=== PATIENT | male | born 1970 | race Caucasian/White ===

== ENCOUNTER 2019-03-06 15:13 | Outpatient (REF) | payer BC, SELFPAY ==
[2019-03-06 19:46] LABS: Calculated LDL 148 mg/dL; Cholesterol 251 mg/dL (<200); Glucose 89 mg/dL (74-106); HDL Cholesterol 37 mg/dL (40-60); Triglyceride 331 mg/dL (<150)
[2019-03-09 11:34] LABS: Hepatitis C Ab w Rflx HCV PCR Negative (Negative)
== END 2019-03-06 15:33 ==
LOC: NCHCN 15:13
PROVIDERS: PCP Family Medicine; Visit Provider Family Medicine
DX: Z00.00 Encounter for general adult medical examination without abnormal findings (principal); Z13.1 Encounter for screening for diabetes mellitus; Z11.59 Encounter for screening for other viral diseases; Z13.220 Encounter for screening for lipoid disorders
CPT/HCPCS: 80061; 82947; 86803

== ENCOUNTER 2019-10-23 06:17 | Day surgery (SDC) | payer BC, SELFPAY ==
[2019-10-23 06:28] VITALS: BP 127/84; PULSE 70; RESP 16; TEMP 36.6; O2SAT 96
[2019-10-23] MEDS: Lactated Ringers 1,000 ML 80 ML IV (06:53)
--- NOTE | 2019-10-23 07:18 | PDOC.DSDIS_ITS ---
Discharge Plan Disposition Patient Disposition: HOME Condition: Good Discharge Details Reason For Visit: Colonoscopy Attending Provider: July Christine Primary Care Provider: Ian Segal Home Meds and New Rx's Prescriptions: Continued aspirin 325 mg tablet 325 mg PO ONCE PRNRF: 0 acetaminophen [Mapap Extra Strength] 500 MG tablet 1 tab PO PRN PRNRF: 0 Discontinued bisacodyl [Dulcolax (bisacodyl)] 5 mg tablet,delayed release (DR/EC) 5 mg PO ONCE Qty: 4 RF: 0 polyethylene glycol 3350 17 gram powder in packet 255 g PO DAILY Qty: 15 RF: 0 Discharge Instructions Additional Instructions: Findings: Three small polyps were removed. My office will contact you with bio psy results. Follow up: If the biopsy shows adenomatous polyps, you will need a colonoscopy in 5 years. Please call if you develop: fevers >101.5 Nausea or Vomiting Abdominal pain that is not transient DAY SURGERY UNIT POST COLONOSCOPY INSTRUCTIONS 1. Because there will be medication in your system for the next 24 hours, you may feel a little sleepy. Your coordination will be affected. Therefore: a. Do not drive or operate dangerous equipment for 24 hours. b. Do not drink alcohol beverages for 24 hours (not even beer). c. Plan to go home and rest for the day. 2. Generally there are no restrictions on your activity after a day or so has gone by, but you may feel a bit fatigued for a few days. 3 After you arrive home you may have a light meal and return to a normal diet as you can tolerate it without feeling sick to your stomach. 4. After surgery, you may feel pain or discomfort. This should be only transient, but if it persists please contact your doctor. 5. If there are any questions regarding the findings of your procedure, please feel free to contact your doctor. 6. If you are unable to contact your doctor with a problem, contact the hospital at [phone]. 7. Continue all your regular medications unless directed otherwise. I understand the above instructions and have no questions. Signature of Patient or Responsible Adult Escort Date/Time Name of Responsible Adult Escort Signature of Nurse Date/Time Activity:: Activity as Tolerated Diet:: As Tolerated Discharge Orders Discharge Orders: Discharge Order (Routine); Ordered 10/23/19 Ordered By: July Christine DS: Diagnosis Discharge Diagnosis (1) Colon polyps: Status: Acute (2) Diverticulosis: Status: Acute
--- NOTE | 2019-10-23 07:19 | W.COLOREPORT ---
Date of service: 10/23/19 Time of Service: 08:06 Colonoscopy Report Date of procedure: 10/23/19 Pre-op diagnosis general: Screening Post-op diagnosis procedure note: other (Colon polyps, mild diverticulosis) Procedure: Colonoscopy with cold forceps polypectomy Surgeon: July Christine Anesthesia proc note operative: MAC Disposition: same day Indications: This 49 year old man presents for his first screening colonoscopy. He has no symptoms. FH of colon cancer in a maternal grandparent. Procedure Description: The patient was placed in the left Donovan position. Propofol was titrated to sedation. Digital rectal examination revealed no abnormalities. The scope was advanced to the cecum without difficulty. The ileocecal valve and appendiceal orifice were clearly identified. The prep was good. The scope was slowly withdrawn over the course of greater than 6 minutes with no abnormalities seen in the ascending, transverse, descending colon. A diminuitive polyp was removed with the cold forceps from the sigmoid colon. Two diminuitive polyps were removed from the rectum with the cold forceps. The patient tolerated the procedure well and was stable to recovery. If the polyps are adenomatous, he will need follow up colonoscopy in 5 years.
--- NOTE | 2019-10-23 07:46 | BOWEL_PTH ---
PATIENT: Garry Wynne LOC: [facility] U#:[id number] AGE/SX: 49/M ROOM: RE10/23/[address]: July Christine MD : [id number] BED: DIS: 10/23/2019 SPEC #: [id number] RECD: 10/23/19 12:43 STATUS: TEMITOPE REQ #: [id number] MARYCHUY: 10/23/19 07:[address]: July Christine DEPT: Surgical Specimen RECD BY: Mamie Arias ENTERED: 10/23/19 12:44 SP TYPE: Bowel OTHR DR: Ian Segal Tissues: 1 - BIOPSY BOWEL 2 - BIOPSY BOWEL Procedures: GROSS AND MICRO LEVEL 4 Comments: [id number]
[2019-10-23 08:31] VITALS: BP 114/81; PULSE 67; RESP 18; TEMP 36.4; O2SAT 97
== END 2019-10-23 09:00 | disposition home or self-care (01) ==
PROVIDERS: PCP Family Medicine; Visit Provider Surgery
PROC: 0DJD8ZZ Inspection of Lower Intestinal Tract, Via Natural or Artificial Opening Endoscopic (ICD-10-PCS; CPT 45378; principal; 2019-10-23 07:30)
DX: Z12.11 Encounter for screening for malignant neoplasm of colon (principal); K63.5 Polyp of colon; K62.1 Rectal polyp; Z80.0 Family history of malignant neoplasm of digestive organs
CPT/HCPCS: 45380; 88305; J2001

== ENCOUNTER 2023-03-04 15:53 | Outpatient (REF) | payer BC, SELFPAY ==
[2023-03-04 19:02] LABS: Hemoglobin A1C 5.7 % (<5.7)
[2023-03-04 19:04] LABS: Calculated LDL 135 mg/dL (<100); Cholesterol 230 mg/dL (<200); HDL Cholesterol 47 mg/dL (40-60); Triglyceride 241 mg/dL (<150)
[2023-03-05 18:18] LABS: HBs Antibody, Quant 14.9 mIU/mL (See Note); Hepatitis B Surface Ab Positive (See Note)
[2023-03-05 18:26] LABS: Hepatitis B Surface Ag Negative (Negative)
[2023-03-05 18:58] LABS: HIV-1/2 Ag & Ab Screen Negative (Negative)
[2023-03-05 19:02] LABS: Hepatitis C Ab w Rflx HCV PCR Negative (Negative)
== END 2023-03-04 15:54 | disposition home or self-care (01) ==
LOC: NCHCN 15:53
PROVIDERS: PCP Family Medicine; Visit Provider Family Medicine
DX: Z00.00 Encounter for general adult medical examination without abnormal findings (principal); Z13.6 Encounter for screening for cardiovascular disorders; Z11.4 Encounter for screening for human immunodeficiency virus [HIV]; Z11.59 Encounter for screening for other viral diseases; Z12.5 Encounter for screening for malignant neoplasm of prostate; Z13.1 Encounter for screening for diabetes mellitus; Z01.84 Encounter for antibody response examination
CPT/HCPCS: 80061; 86706; 86803; 87340; 87389; 83036

== ENCOUNTER 2023-12-03 19:49 | Emergency (ER) | payer BC, SELFPAY ==
[2023-12-03 20:02] VITALS: BP 151/96; PULSE 96; RESP 16; TEMP 37; O2SAT 95
--- NOTE | 2023-12-03 20:45 | ED.GENADUL_ITS ---
Discharge Plan Disposition Patient Disposition: Home Condition: Stable Discharge Details Clinical Impression: Abrasion of cornea, left Primary Care Provider: Ian Segal ED Provider: Josefina Rajan Home Meds and New Rx's Prescriptions: No Action aspirin 325 mg tablet 325 mg PO ONCE PRN acetaminophen [Mapap Extra Strength] 500 MG tablet 1 tab PO PRN PRN Discharge Instructions Instructions: Corneal Abrasion ED Additional Instructions: Please use the erythromycin ointment 3-4 times a day while awake. You do have a small scratch on your cornea. Keep it covered wear sunglasses. If continued pain or discomfort please follow-up with [facility] eye care in the next 2 to 3 days. Please take Tylenol or Ibuprofen with food every 4-6 hours as needed for pain and swelling. Follow up with primary care provider in 3-5 days. Return to ED sooner if any worsening or concerns. Stand Alone Forms: Work Release Referrals: [facility] [Outside] - 3 days Discharge Data Discharge Date/Time-TO BE ENTERED AT DEPARTURE: 12/03/23 21:08 HPI General Mode of arrival: ambulatory . Date/Time Provider Initiated Documentation: 12/03/23 20:14 . Limitations to Documentation: no limitations . Information obtained by: patient, RN notes reviewed and old records reviewed . HPI Narrative: 53 year old male presents with left eye irritation since this am. He reports he is walking the dog and had irritation to his left eye he did flush it at home. He has continued to bother him. He does have a small corneal abrasion noted to the inner canthus of his left eye, no foreign body visualized. Ophthalmic pressure 8.9 which is within normal limits. Related Data Home Medications ?Medication ?Instructions ?Recorded ?Confirmed acetaminophen 500 mg tablet (Mapap 1 tab PO PRN PRN 06/29/17 12/03/23 Extra Strength) aspirin 325 mg tablet 325 mg PO ONCE PRN 09/25/19 12/03/23 Allergies Allergy/AdvReac Type Severity Reaction Status Date / Time No Known Allergies Allergy Unverified 12/03/23 20:07 General Stated Complaint: EyeProblem WILY: 4 Review of Systems All systems reviewed & are unremarkable except as noted in HPI and below Constitutional Constitutional: Reports as per HPI Eyes Eyes: Reports as per HPI, Reports irritation and Reports eye pain Exam Const General: cooperative, healthy appearing, well developed and well groomed Nutritional Appearance: average body habitus Orientation: alert, awake and oriented x3 Eyes General: appearance normal, both eyes and all related structures Alignment and Position: alignment normal Periorbital: periorbital findings normal Eyelids: eyelids normal Conjunctivae: conjunctival abnormality left conjunctival injection diffuse; without discharge and without subconjunctival hemmorhages Cornea: corneas abnormal on the left fluorescein used and abrasion at the following clock position (7 o clock); without dendrites present and with no foreign body noted Pupils: PERRL EOM: EOM intact bilaterally Direct ophthalmoscopy: normal light reflex Other: Ocular pressure 8.9 Eyes/upper lids images: 2 1. Corneal Abrasion Course Vital Signs Vital signs: Vital Signs Temperature 37.0 C 12/03/23 20:02 Pulse 96 H 12/03/23 20:02 Respiratory Rate 16 12/03/23 20:02 Blood Pressure 151/96 H 12/03/23 20:02 Pulse Oximetry 95 12/03/23 20:02 Temperature 37.0 C 12/03/23 20:02 Pulse 96 H 12/03/23 20:02 Respiratory Rate 16 12/03/23 20:02 Respiratory Effort Normal 12/03/23 20:10 Blood Pressure 151/96 H 12/03/23 20:02 Pulse Oximetry 95 12/03/23 20:02 Oxygen Delivery Method Room Air 12/03/23 20:02 Oxygen Flow Rate 0 12/03/23 20:02 Pain Level 4 12/03/23 20:02 Medical Decision Making 53 year old male presents with left eye irritation since this am. He reports he is walking the dog and had irritation to his left eye he did flush it at home. He has continued to bother him. He does have a small corneal abrasion noted to the inner canthus of his left eye, no foreign body visualized. Ophthalmic pressure 8.9 which is within normal limits. Eye exam performed with Kumar lamp, tetracaine and fluorescein. No visualized foreign body, will treat for corneal abrasion instructed to follow-up with brush holder inspector if continued worsening of symptoms. Patient given erythromycin ointment instructed on use. This text was generated using [employer] system, please disregard any oddities of phrase or misspellings. Quality:SDOH Health Related Social Needs: 2 No Data to Display PFSH All Active Problems (Updated 12/03/23 @ 20:50 by Josefina Rajan NP) Abrasion of cornea, left (Acute) Colon polyp, hyperplastic (Acute ~10/2019) Dr. Smuan Christine, repeat colo 10 years Diverticulosis (Acute) Medical History Psoriatic arthritis Positive PPD, treated took TB medication for 9 months in 2014 Surgical History Hx of removal of cyst off penis S/P urological surgery Social History Smoking/Tobacco Use Status: Never Smoking risk assessment performed?: Yes Drug use: Never Substance use type: does not use Housing: house Do you feel safe at home: Yes Do you feel safe in your relationship?: Yes
[2023-12-03] MEDS: Balanced Salt Solution 15 ML BTL OP (20:48)
[2023-12-03] MEDS: Tetracaine 0.5% 4 ML BTL (20:48)
[2023-12-03] MEDS: Erythromycin Ophth Oint 3.5 GM TUBE OU (20:52)
== END 2023-12-03 21:08 | disposition home or self-care (01) ==
PROVIDERS: Emergency Provider Registered Nurse Emergency; PCP Family Medicine
DX: S05.02XA Injury of conjunctiva and corneal abrasion without foreign body, left eye, initial encounter (principal); Z79.82 Long term (current) use of aspirin; X58.XXXA Exposure to other specified factors, initial encounter
CPT/HCPCS: 99283

== ENCOUNTER 2024-03-10 12:06 | Outpatient (REF) | payer BC, SELFPAY ==
[2024-03-10 15:59] LABS: Hemoglobin A1C 5.8 % (<5.7)
[2024-03-10 16:00] LABS: ALT 19 U/L (16-63); AST 19 U/L (15-37); Albumin 3.8 g/dL (3.4-5.0); Alkaline Phosphatase 98 U/L (46-116); Anion Gap 9.7 mmol/L (3-11); BUN 12 mg/dL (7-18); CO2 29.3 mmol/L (21.0-32.0); Calculated LDL 106 mg/dL (<100); Chloride 104 mmol/L (98-107); Cholesterol 202 mg/dL (<200); Estimated GFR 89.44 (mL/min/1.73m2); Glucose 89 mg/dL (74-106); HDL Cholesterol 47 mg/dL (40-60); Potassium 4.3 mmol/L (3.5-5.1); Sodium 143 mmol/L (136-145); Total Protein 7.4 g/dL (6.4-8.2); Triglyceride 245 mg/dL (<150)
[2024-03-11 07:32] LABS: PSA, Screening 0.4 ng/mL (<=3.5)
== END 2024-03-10 12:07 | disposition home or self-care (01) ==
LOC: NCHCN 12:06
PROVIDERS: PCP Physician Assistant; Visit Provider Physician Assistant
DX: E78.5 Hyperlipidemia, unspecified (principal); R73.03 Prediabetes; Z12.5 Encounter for screening for malignant neoplasm of prostate
CPT/HCPCS: 80053; 80061; 84153; 83036

== ENCOUNTER 2024-07-27 06:53 | Emergency (ER) | payer BC, SELFPAY ==
[2024-07-27 06:57] VITALS: BP 122/82; PULSE 68; RESP 15; TEMP 36.4; O2SAT 97
[2024-07-27 07:04] VITALS: BP 122/82; PULSE 68; RESP 15; TEMP 36.4; O2SAT 97
[2024-07-27] MEDS: Erythromycin Ophth Oint 3.5 GM TUBE (07:06)
[2024-07-27] MEDS: Fluorescein STRIPS 100/BOX 1 MG (07:06)
--- NOTE | 2024-07-27 07:12 | W.ED.GENAD ---
Discharge Plan Disposition Patient Disposition: Home Condition: Good Discharge Details Chief Complaint: EyeProblem Clinical Impression: Injury of conjunctiva and corneal abrasion of left eye w/o FB Primary Care Provider: Nadir Maradiaga ED Provider: John Raphael Home Meds and New Rx's Prescriptions: No Action aspirin 325 mg tablet 325 mg PO ONCE PRN acetaminophen [Mapap Extra Strength] 500 MG tablet 1 tab PO PRN PRN Discharge Instructions Instructions: Corneal Abrasion ED Additional Instructions: At this time you have a mild corneal abrasion in your left eye. Please apply the erythromycin ointment every 6-8 hours to the affected eye. For the next week, please apply 2 drops of lubricating eyedrops to your left eye right before you go to bed. If you notice any worsening of your symptoms, or any new symptoms such as vomiting, diarrhea, fever, chills, shortness of breath, chest pain, numbness, weakness, or fainting , please return immediately to the emergency department for reevaluation. Please follow up with your primary care provider as soon as possible for reassessment and reevaluation. As always, it was a pleasure participating in your medical care today. Stand Alone Forms: Work Release Referrals: [facility] [Outside] HPI General Date/Time Provider Initiated Documentation: 07/27/24 06:58. HPI Narrative: 53-year-old male presents today for left eye pain. Tetanus is up-to-date. Patient does not wear contact lenses. Patient states that yesterday he was doing some work and looked up when some dirt and debris got into his left eye. He immediately washed out his eye thoroughly, however when he woke back up this morning he noted the significant return of the pain. Pain is made worse with light. He denies any other trauma. No other complaints at this time. Related Data Home Medications ?Medication ?Instructions ?Recorded ?Confirmed acetaminophen 500 mg tablet (Mapap 1 tab PO PRN PRN 06/29/17 12/03/23 Extra Strength) aspirin 325 mg tablet 325 mg PO ONCE PRN 09/25/19 12/03/23 Allergies Allergy/AdvReac Type Severity Reaction Status Date / Time No Known Allergies Allergy Unverified 12/03/23 20:07 General Stated Complaint: EyeProblem WILY: 4 Exam Narrative Exam Narrative: 1.Const: Well-nourished, Well-developed, appearing stated age 2.Eyes: PERRL, no conjunctival injection, and symmetrical lids. Left eye: Peripheral vision intact. No nystagmus. No clinical signs of septal/orbital cellulitis, no redness around the eye, no proptosis. No hyphema, no signs of trauma around the eye, no periorbital emphysema. No sluggishness of the pupil. No ophthalmoplegia. No afferent pupillary defect. Fluorescein exam is positive for corneal abrasion in a linear pattern at the mid level of the eye, negative Ken sign. No signs of foreign bodies. Eversion of the upper and lower lid shows no evidence of retained product. Visual acuity as documented in chart. 3.ENT: Atraumatic external nose and ears. Moist MM. Neck: Symmetric, trachea midline, No thyromegaly. 4.CVS: +S1/S2, Peripheral pulses 2+ and equal in all extremities. Brisk capillary refill in all extremities. 5.RESP: Unlabored respiratory effort. Clear to auscultation bilaterally. No wheezes rales or rhonchi 6.GI: Soft, Nontender/Nondistended, No hepatosplenomegaly. No guarding or rebound. 7.MSK: Normocephalic/Atraumatic, Extremities w/o deformity or ttp No cyanosis or clubbing, Normal movement of all extremities 8.Skin: Warm, Dry. No rashes or lesions. 9.Neuro: interactive graphic designer II-XII grossly intact. Sensation grossly intact, no focal neurologic deficits. 10.Psych: (AAO) x3. Appropriate mood and affect Course Vital Signs Vital signs: Vital Signs Temperature 36.4 C 07/27/24 06:57 Pulse 68 07/27/24 06:57 Respiratory Rate 15 07/27/24 06:57 Blood Pressure 122/82 07/27/24 06:57 Pulse Oximetry 97 07/27/24 06:57 Temperature 36.4 C 07/27/24 07:04 Temperature Source Oral 07/27/24 07:04 Pulse 68 07/27/24 07:04 Respiratory Rate 15 07/27/24 07:04 Blood Pressure 122/82 07/27/24 07:04 Blood Pressure Position Sitting 07/27/24 07:04 Pulse Oximetry 97 07/27/24 07:04 Oxygen Delivery Method Room Air 07/27/24 07:04 Oxygen Flow Rate 0 07/27/24 07:04 Pain Level 3 07/27/24 07:04 Medical Decision Making 53-year-old male presents today for left eye pain. Tetanus is up-to-date. Patient does not wear contact lenses. Patient states that yesterday he was doing some work and looked up when some dirt and debris got into his left eye. He immediately washed out his eye thoroughly, however when he woke back up this morning he noted the significant return of the pain. Pain is made worse with light. He denies any other trauma. No other complaints at this time. Exam demonstrates a small linear corneal abrasion in the middle of the eye. No foreign body. Eversion of the upper and lower lid showed no retained body. Erythromycin ointment was applied. Patient tolerated this well. Recommend conservative therapy at home with lubricating eyedrops and erythromycin ointment. With no foreign body or other abnormalities or evidence of globe rupture no indication for further interventions. Patient will be discharged home. Discussed red flags for which to return. I have extensively reviewed the treatment plan and discharge instructions with the patient. I have addressed all patient concerns at this time. The patient was made aware of what symptoms to monitor for that would warrant a return to the emergency department. Discussed the plan with the patient, they demonstrate verbal understanding and agreement with our assessment and plan at this time. The documentation in this chart was dictated using [employer] dictation software. Please excuse any dictation errors. Quality:SDOH Health Related Social Needs: No Data to Display PFSH All Active Problems (Updated 07/27/24 @ 07:13 by John Raphael DO) Injury of conjunctiva and corneal abrasion of left eye w/o FB (Acute) Colon polyp, hyperplastic (Acute ~10/2019) Dr. Suman Christine, repeat colo 10 years Diverticulosis (Acute) Medical History Psoriatic arthritis Positive PPD, treated took TB medication for 9 months in 2014 Surgical History Hx of removal of cyst off penis S/P urological surgery Social History Smoking/Tobacco Use Status: Never Smoking risk assessment performed?: Yes Drug use: Never Substance use type: does not use Housing: house Do you feel safe at home: Yes Do you feel safe in your relationship?: Yes
== END 2024-07-27 07:17 | disposition home or self-care (01) ==
LOC: ER 11:55
PROVIDERS: Emergency Provider Student in an Organized Health Care Education/Training Program; PCP Physician Assistant
DX: S05.02XA Injury of conjunctiva and corneal abrasion without foreign body, left eye, initial encounter (principal); X58.XXXA Exposure to other specified factors, initial encounter
CPT/HCPCS: 99283 ×2